=== PATIENT | female | born 1940 | race African-American/Black ===

== ENCOUNTER 2019-03-03 15:22 | Inpatient (IN) | payer MEDICARE ==
[~2019-03-03] VITALS: Ht 170.2 cm; Wt 64.0 kg
[~2019-03-03 15:22] MED LIST: ASPI-518 PO; ATEN-175 PO; Bacitracin; CLEAR EYES OP; COLC0.6T66 PO; DRY EYE RELIEF OP; ECOTRIN PO; FLUT16SP15; FURO-152 PO; LISI40TA4 PO; METO50TA95 PO; OMEP20CA14 PO; [UNRECOGNIZED DRUG - OTHER]; [UNRECOGNIZED DRUG - OTHER] PO
[2019-03-03] MEDS ORDERED: SODIUM CHLORIDE 0.9% 1,000 ML IV ONE (16:06)
[2019-03-03] MEDS ORDERED: ONDANSETRON HCL 4MG/2ML INJ IV ONE (16:15)
[2019-03-03 16:32] LABS: CHLORIDE 104 mEq/L (98-107)
[2019-03-03 16:33] LABS: BASOPHILS % 0.5 % (0.0-2.0); EOSINOPHILS % 0.1 % (0.0-5.0); HEMATOCRIT. 38.5 % (36.0-48.0); LYMPHOCYTES % 35.6 % (20.0-50.0); MEAN CORPUSCULAR HEMOGLOBIN 30.9 pg (28.0-32.0); MEAN CORPUSCULAR VOLUME 91.4 fL (81.0-99.0); MEAN PLATELET VOLUME 9.2 fl (7.4-10.4); MONOCYTES % 12.6 % (2.0-8.0); NEUTROPHILS % 51.2 % (40.0-76.0); PLATELET 148 x1000/uL (130-400); RED BLOOD CELL COUNT 4.21 mill/uL (4.2-5.4); RED CELL DISTRIBUTION WIDTH 13.1 % (11.6-14.6)
[2019-03-03] MEDS ORDERED: ASPIRIN 325MG EC TABLET PO ONE (17:30)
[2019-03-03 21:59] VITALS: BP 137/83
[2019-03-03 22:00] VITALS: BP 137/83
[2019-03-03] MEDS ORDERED: ERGO400C PO (22:37)
[2019-03-03] MEDS ORDERED: CARV3.1242 PO (22:37)
[2019-03-03] MEDS ORDERED: AMLO2.5T45 PO (22:37)
[2019-03-03] MEDS ORDERED: LOSA25TA26 PO (22:37)
[2019-03-03] MEDS ORDERED: IPRATROPIUM/ALBUTEROL 0.5-3(2.5)MG/3ML NEB NEB PRN (22:45)
[2019-03-03] MEDS ORDERED: ONDANSETRON HCL 4MG/2ML INJ IV PRN (22:45)
[2019-03-03] MEDS ORDERED: MORPHINE SULFATE 2 MG/ML CPJ (NOT FOR IM USE) IV PRN (22:45)
[2019-03-03] MEDS ORDERED: HYDROCODONE/APAP 7.5/325MG 1 TAB TABLET PO PRN (22:45)
[2019-03-03 22:46] VITALS: BP 137/83
[2019-03-03] MEDS ORDERED: DEXTROSE 50% WATER 50ML SYRINGE IV PRN (23:00)
[2019-03-03] MEDS: THIAMINE HCL 100MG TABLET PO SCH (23:08)
[2019-03-03] MEDS: SODIUM CHLORIDE 0.9% 1,000 ML IV SCH (23:08)
[2019-03-03] MEDS: POTASSIUM CHLORIDE 20MEQ TABLET SR PO SCH (23:09)
[2019-03-03] MEDS: FERROUS SULFATE 325MG TABLET PO SCH (23:09)
[2019-03-03] MEDS: PROMETHAZINE/DEXTROMETHORPHAN 6.25-15MG/5ML BOTTLE 120ML PO PRN (23:34)
[2019-03-04] VITALS: BP 117/75
[2019-03-04 04:00] VITALS: BP 129/66
[2019-03-04] MEDS: BLOOD SUGAR DIAGNOSTIC STRIP TEST SCH ×4 (05:50→21:01)
[2019-03-04 07:23] LABS: CLARITY URINE CLEAR (CLEAR); COLOR URINE YELLOW (YELLOW); KETONES URINE NEGATIVE (NEGATIVE); LEUKOCYTE ESTERASE URINE TRACE (NEGATIVE); NITRITE URINE NEGATIVE (NEGATIVE); OCCULT BLOOD URINE NEGATIVE (NEGATIVE); PH URINE 5.5 (4.5-8.0); PROTEIN URINE 1+ (NEGATIVE); SPECIFIC GRAVITY URINE 1.009 (1.005-1.030); UROBILINOGEN URINE 0.2 E.U./dL (0.2-1.0)
[2019-03-04 07:41] LABS: *AMPHETAMINES SCREEN URINE NEGATIVE (NEGATIVE); *BARBITURATES SCREEN URINE NEGATIVE (NEGATIVE); *BENZODIAZEPINES SCREEN URINE NEGATIVE (NEGATIVE); *COCAINE SCREEN URINE NEGATIVE (NEGATIVE)
[2019-03-04 07:42] LABS: CANNABINOID URINE SCREEN NEGATIVE (NEGATIVE); OPIATES URINE SCREEN NEGATIVE (NEGATIVE); PHENCYCLIDINE URINE SCREEN NEGATIVE (NEGATIVE)
[2019-03-04 07:48] LABS: METHADONE URINE SCREEN NEGATIVE (NEGATIVE)
[2019-03-04] MEDS: INSULIN LISPRO 100 UNITS/ML SUBCUT SCH ×4 (07:50→21:00)
[2019-03-04 08:00] VITALS: BP 148/98
[2019-03-04] MEDS ORDERED: ENOXAPARIN 30MG/0.3ML SYR SUBCUT SCH (09:00)
[2019-03-04] MEDS: FERROUS SULFATE 325MG TABLET PO SCH ×2 (09:26→17:50)
[2019-03-04] MEDS: THIAMINE HCL 100MG TABLET PO SCH (09:26)
[2019-03-04] MEDS: POTASSIUM CHLORIDE 20MEQ TABLET SR PO SCH (09:26)
[2019-03-04 12:00] VITALS: BP 128/78
[2019-03-04] MEDS: PROMETHAZINE/DEXTROMETHORPHAN 6.25-15MG/5ML BOTTLE 120ML PO PRN ×2 (12:59→21:34)
[2019-03-04 13:25] LABS: BASOPHILS % 0.3 % (0.0-2.0); EOSINOPHILS % 0.1 % (0.0-5.0); HEMATOCRIT. 36.4 % (36.0-48.0); HEMOGLOBIN. 12.5 g/dL (12.0-16.0); LYMPHOCYTES % 41.4 % (20.0-50.0); MEAN CORPUSCULAR HEMOGLOBIN 31.1 pg (28.0-32.0); MEAN CORPUSCULAR VOLUME 90.6 fL (81.0-99.0); MEAN PLATELET VOLUME 9.1 fl (7.4-10.4); MONOCYTES % 8.8 % (2.0-8.0); NEUTROPHILS % 49.4 % (40.0-76.0); PLATELET 122 x1000/uL (130-400); RED BLOOD CELL COUNT 4.01 mill/uL (4.2-5.4); RED CELL DISTRIBUTION WIDTH 12.8 % (11.6-14.6)
[2019-03-04 13:39] LABS: CHLORIDE 113 mEq/L (98-107)
[2019-03-04 16:00] VITALS: BP_SYST 145; BP_SYST 151; BP_SYST 152; BP_DIAS 102; BP_DIAS 96; BP_DIAS 99
[2019-03-04] MEDS ORDERED: ASPIRIN 81MG TABLET PO SCH (17:00)
[2019-03-04] MEDS ORDERED: LOSARTAN POTASSIUM 25 MG TABLET PO SCH (17:15)
[2019-03-04] MEDS ORDERED: AMLO5TAB88 PO (17:21)
[2019-03-04] MEDS ORDERED: LOSA25TA26 PO (17:21)
[2019-03-04] MEDS ORDERED: LEVO50TA8 MT (17:21)
[2019-03-04] MEDS ORDERED: ATOR40TA70 MT (17:21)
[2019-03-04] MEDS ORDERED: [UNRECOGNIZED DRUG - REMARK] (17:35)
[2019-03-04] MEDS ORDERED: D3 5000 IU PO (17:36)
[2019-03-04] MEDS: ATORVASTATIN CALCIUM 40MG TABLET PO SCH (17:50)
[2019-03-04] MEDS: LOSARTAN POTASSIUM 25 MG TABLET PO SCH (17:58)
[2019-03-04] MEDS: OMEPRAZOLE 20MG CAPSULE EXTENDED RELEASE PO SCH (17:58)
[2019-03-04] MEDS: LEVOTHYROXINE SODIUM 50MCG TABLET PO SCH (17:59)
[2019-03-04] MEDS ORDERED: CARVEDILOL 3.125 MG TABLET PO SCH (18:00)
[2019-03-04] MEDS: SODIUM CHLORIDE 0.9% 1,000 ML IV SCH (18:13)
[2019-03-04 20:00] VITALS: BP 142/76
[2019-03-04] MEDS: AMLODIPINE 5MG TABLET PO SCH (21:30)
[2019-03-04] MEDS: ACETAMINOPHEN 325MG TABLET PO PRN (21:31)
[2019-03-05] VITALS: BP 150/84
[2019-03-05] MEDS: PROMETHAZINE/DEXTROMETHORPHAN 6.25-15MG/5ML BOTTLE 120ML PO PRN (03:46)
[2019-03-05] MEDS: ACETAMINOPHEN 325MG TABLET PO PRN (03:46)
[2019-03-05 04:00] VITALS: BP 142/82
[2019-03-05] MEDS: BLOOD SUGAR DIAGNOSTIC STRIP TEST SCH ×4 (06:31→21:03)
[2019-03-05] MEDS: OMEPRAZOLE 20MG CAPSULE EXTENDED RELEASE PO SCH (06:31)
[2019-03-05] MEDS: LEVOTHYROXINE SODIUM 50MCG TABLET PO SCH (06:31)
[2019-03-05 07:02] LABS: BASOPHILS % 0.3 % (0.0-2.0); EOSINOPHILS % 0.1 % (0.0-5.0); HEMATOCRIT. 35.2 % (36.0-48.0); HEMOGLOBIN. 12.2 g/dL (12.0-16.0); LYMPHOCYTES % 48.7 % (20.0-50.0); MEAN CORPUSCULAR HEMOGLOBIN 31.3 pg (28.0-32.0); MEAN CORPUSCULAR VOLUME 90.2 fL (81.0-99.0); MONOCYTES % 9.7 % (2.0-8.0); NEUTROPHILS % 41.2 % (40.0-76.0); PLATELET 107 x1000/uL (130-400)
[2019-03-05] MEDS: INSULIN LISPRO 100 UNITS/ML SUBCUT SCH ×4 (07:50→21:46)
[2019-03-05 07:53] LABS: CHLORIDE 114 mEq/L (98-107)
[2019-03-05 08:00] VITALS: BP 118/74
[2019-03-05 08:04] LABS: PHOSPHORUS 2.4 mg/dL (2.5-4.9)
[2019-03-05] MEDS: POTASSIUM CHLORIDE 20MEQ TABLET SR PO SCH (10:01)
[2019-03-05] MEDS: CARVEDILOL 3.125 MG TABLET PO SCH ×2 (10:02→21:03)
[2019-03-05] MEDS: ASPIRIN 81MG TABLET PO SCH (10:02)
[2019-03-05] MEDS: LOSARTAN POTASSIUM 25 MG TABLET PO SCH ×2 (10:02→17:21)
[2019-03-05] MEDS: AMLODIPINE 5MG TABLET PO SCH ×2 (10:19→21:03)
[2019-03-05] MEDS: CHOLECALCIFEROL (D3) 1000 UNIT TABLET PO SCH (10:19)
[2019-03-05] MEDS: ATORVASTATIN CALCIUM 40MG TABLET PO SCH (10:19)
[2019-03-05] MEDS: THIAMINE HCL 100MG TABLET PO SCH (10:20)
[2019-03-05] MEDS: ENOXAPARIN 40MG/0.4ML SYR SUBCUT SCH (10:20)
[2019-03-05 12:00] VITALS: BP 146/78
[2019-03-05] MEDS ORDERED: REGADENOSON 0.4 MG/5 ML IV NR (13:15)
[2019-03-05] MEDS: MAGNESIUM OXIDE 400MG TABLET PO SCH (13:54)
[2019-03-05] MEDS ORDERED: IPRATROPIUM/ALBUTEROL 0.5-3(2.5)MG/3ML NEB HHN PRN (14:45)
[2019-03-05] MEDS ORDERED: BENZONATATE 100MG CAPSULE PO PRN (14:45)
[2019-03-05 16:00] VITALS: BP 123/83
[2019-03-05] MEDS: AZITHROMYCIN 500 MG TABLET PO SCH (17:22)
[2019-03-05] MEDS: SODIUM CHLORIDE 0.9% 1,000 ML IV SCH (17:22)
[2019-03-05] MEDS: METHYLPREDNISOLONE SOD SUCC 40 MG/ML VIAL IV SCH ×2 (17:38→22:04)
[2019-03-05] MEDS: CEFTRIAXONE 1 G PREMIX 50 ML IV SCH (17:39)
[2019-03-05] MEDS ORDERED: AMLODIPINE 5MG TABLET PO SCH (18:00)
[2019-03-05 20:00] VITALS: BP 128/80
[2019-03-05] MEDS: GUAIFENESIN 600MG ER TABLET PO SCH (21:02)
[2019-03-06] VITALS (9 sets, daily range): BP systolic 116–160; BP diastolic 60–113
[2019-03-06 05:51] LABS: HEMATOCRIT. 38.9 % (36.0-48.0); HEMOGLOBIN. 13.6 g/dL (12.0-16.0); MEAN CORPUSCULAR HEMOGLOBIN 31.2 pg (28.0-32.0); MEAN CORPUSCULAR VOLUME 89.5 fL (81.0-99.0); MEAN PLATELET VOLUME 9.1 fl (7.4-10.4); PLATELET 116 x1000/uL (130-400); RED BLOOD CELL COUNT 4.35 mill/uL (4.2-5.4); RED CELL DISTRIBUTION WIDTH 12.8 % (11.6-14.6)
[2019-03-06] MEDS: METHYLPREDNISOLONE SOD SUCC 40 MG/ML VIAL IV SCH ×3 (06:00→21:00)
[2019-03-06] MEDS: BLOOD SUGAR DIAGNOSTIC STRIP TEST SCH ×4 (06:13→20:56)
[2019-03-06] MEDS: OMEPRAZOLE 20MG CAPSULE EXTENDED RELEASE PO SCH ×2 (06:24→13:04)
[2019-03-06] MEDS: LEVOTHYROXINE SODIUM 50MCG TABLET PO SCH ×2 (06:24→13:04)
[2019-03-06 06:34] LABS: CHLORIDE 111 mEq/L (98-107)
[2019-03-06 06:42] LABS: C REACTIVE PROTEIN QUANT 0.8 mg/L (0.0-3.0)
[2019-03-06] MEDS: INSULIN LISPRO 100 UNITS/ML SUBCUT SCH ×3 (07:50→21:03)
[2019-03-06] MEDS: CHOLECALCIFEROL (D3) 1000 UNIT TABLET PO SCH (09:00)
[2019-03-06] MEDS: ASPIRIN 81MG TABLET PO SCH (09:00)
[2019-03-06] MEDS: THIAMINE HCL 100MG TABLET PO SCH (09:00)
[2019-03-06] MEDS: ATORVASTATIN CALCIUM 40MG TABLET PO SCH (09:00)
[2019-03-06] MEDS: AMLODIPINE 5MG TABLET PO SCH ×2 (09:00→12:55)
[2019-03-06] MEDS: FERROUS SULFATE 325MG TABLET PO SCH (09:00)
[2019-03-06] MEDS: ENOXAPARIN 40MG/0.4ML SYR SUBCUT SCH (09:00)
[2019-03-06] MEDS: GUAIFENESIN 600MG ER TABLET PO SCH ×2 (09:00→20:57)
[2019-03-06] MEDS: POTASSIUM CHLORIDE 20MEQ TABLET SR PO SCH (09:00)
[2019-03-06] MEDS: MAGNESIUM OXIDE 400MG TABLET PO SCH (09:00)
[2019-03-06] MEDS: LOSARTAN POTASSIUM 25 MG TABLET PO SCH ×2 (09:00→12:56)
[2019-03-06] MEDS: CARVEDILOL 3.125 MG TABLET PO SCH ×2 (09:00→12:55)
[2019-03-06] MEDS ORDERED: REGADENOSON 0.4 MG/5 ML IV ONE (09:31)
[2019-03-06 09:51] LABS: PLATELET ESTIMATE SLIGHTLY DECREASED
[2019-03-06] MEDS: SODIUM CHLORIDE 0.9% 1,000 ML IV SCH (10:36)
[2019-03-06 16:43] LABS: HEPATITIS B SURFACE ANTIGEN NEGATIVE
[2019-03-06 17:13] LABS: HEPATITIS A AB IGM NEGATIVE (NEGATIVE)
[2019-03-06] MEDS: AZITHROMYCIN 500 MG TABLET PO SCH (17:31)
[2019-03-06] MEDS: CEFTRIAXONE 1 G PREMIX 50 ML IV SCH (17:31)
[2019-03-06] MEDS ORDERED: LOSARTAN POTASSIUM 25 MG TABLET PO NR (21:00)
[2019-03-06] MEDS ORDERED: CARVEDILOL 3.125 MG TABLET PO NR (21:00)
[2019-03-07] VITALS: BP 133/89
[2019-03-07 04:00] VITALS: BP 149/93
[2019-03-07] MEDS: METHYLPREDNISOLONE SOD SUCC 40 MG/ML VIAL IV SCH ×2 (06:44→13:17)
[2019-03-07] MEDS: BLOOD SUGAR DIAGNOSTIC STRIP TEST SCH ×2 (07:11→11:48)
[2019-03-07] MEDS ORDERED: FAMOTIDINE 20MG TABLET PO SCH (07:20)
[2019-03-07 07:36] LABS: BASOPHILS % 0.4 % (0.0-2.0); HEMATOCRIT. 37.9 % (36.0-48.0); HEMOGLOBIN. 13.1 g/dL (12.0-16.0); LYMPHOCYTES % 13.8 % (20.0-50.0); MEAN CORPUSCULAR HEMOGLOBIN 31.4 pg (28.0-32.0); MEAN CORPUSCULAR VOLUME 90.7 fL (81.0-99.0); MEAN PLATELET VOLUME 9.4 fl (7.4-10.4); MONOCYTES % 5.2 % (2.0-8.0); NEUTROPHILS % 80.6 % (40.0-76.0); PLATELET 124 x1000/uL (130-400); RED BLOOD CELL COUNT 4.18 mill/uL (4.2-5.4); RED CELL DISTRIBUTION WIDTH 13.1 % (11.6-14.6)
[2019-03-07 08:00] VITALS: BP 143/75
[2019-03-07 08:06] LABS: CHLORIDE 112 mEq/L (98-107)
[2019-03-07] MEDS: POTASSIUM CHLORIDE 20MEQ TABLET SR PO SCH (09:10)
[2019-03-07] MEDS: CHOLECALCIFEROL (D3) 1000 UNIT TABLET PO SCH (09:10)
[2019-03-07] MEDS: FERROUS SULFATE 325MG TABLET PO SCH (09:10)
[2019-03-07] MEDS: THIAMINE HCL 100MG TABLET PO SCH (09:10)
[2019-03-07] MEDS: ASPIRIN 81MG TABLET PO SCH (09:10)
[2019-03-07] MEDS: MAGNESIUM OXIDE 400MG TABLET PO SCH (09:11)
[2019-03-07] MEDS: AMLODIPINE 5MG TABLET PO SCH (09:11)
[2019-03-07] MEDS: LOSARTAN POTASSIUM 25 MG TABLET PO SCH (09:11)
[2019-03-07] MEDS: GUAIFENESIN 600MG ER TABLET PO SCH (09:11)
[2019-03-07] MEDS: CARVEDILOL 3.125 MG TABLET PO SCH (09:12)
[2019-03-07] MEDS: ENOXAPARIN 40MG/0.4ML SYR SUBCUT SCH (09:12)
[2019-03-07] MEDS: ATORVASTATIN CALCIUM 40MG TABLET PO SCH (09:21)
[2019-03-07] MEDS: SODIUM CHLORIDE 0.9% 1,000 ML IV SCH (09:27)
[2019-03-07] MEDS: INSULIN LISPRO 100 UNITS/ML SUBCUT SCH ×2 (09:35→11:48)
[2019-03-07 11:39] VITALS: BP 135/95
[2019-03-07 14:49] VITALS: BP 135/95
[2019-03-08 09:06] LABS: IMMUNOGLOBULIN A 201 mg/dL (64-422); IMMUNOGLOBULIN G 1398 mg/dL (700-1600); IMMUNOGLOBULIN M 88 mg/dL (26-217)
[2019-03-08 09:06] LABS: IMMUNOGLOBULIN G 1471 mg/dL (700-1600); IMMUNOGLOBULIN M 85 mg/dL (26-217)
[2019-03-08 10:07] LABS: EBV VIRAL CAPSID AB IGM <36.0 U/mL (0.0-35.9)
[2019-03-08 14:08] LABS: HIV SCREEN 4G Non Reactive (Non Reactive)
== END 2019-03-07 16:25 | disposition home or self-care (01) | DRG 871 ==
LOC: ER 15:22 → 6WST 18:46 → EDBEDREQ 18:49 → ENRESERV 19:48
PROVIDERS: ADMIT Internal Medicine Nephrology; ATTEND Internal Medicine Nephrology
DX: A41.9 Sepsis, unspecified organism (principal); N17.0 Acute kidney failure with tubular necrosis; J96.00 Acute respiratory failure, unspecified whether with hypoxia or hypercapnia; E44.1 Mild protein-calorie malnutrition; G90.8 Other disorders of autonomic nervous system; E03.9 Hypothyroidism, unspecified; E87.6 Hypokalemia; I25.10 Atherosclerotic heart disease of native coronary artery without angina pectoris; E86.0 Dehydration; E78.5 Hyperlipidemia, unspecified; D69.6 Thrombocytopenia, unspecified; E11.22 Type 2 diabetes mellitus with diabetic chronic kidney disease; I12.9 Hypertensive chronic kidney disease with stage 1 through stage 4 chronic kidney disease, or unspecified chronic kidney disease; J20.9 Acute bronchitis, unspecified; N18.9 Chronic kidney disease, unspecified; R74.0 Nonspecific elevation of levels of transaminase and lactic acid dehydrogenase [LDH]; Z95.5 Presence of coronary angioplasty implant and graft; Z68.22 Body mass index [BMI] 22.0-22.9, adult; I25.2 Old myocardial infarction; Z82.49 Family history of ischemic heart disease and other diseases of the circulatory system
CPT/HCPCS: 36415; 71045; 78452; 80048; 80053; 80061; 80305; 81003; 82784; 82962; 83036; 83735; 83880; 84100; 84145; 84443; 84484; 85025; 85651; 86140; 86334; 86664; 86665; 86705; 86709; 86803; 87340; 87389; 93005; 93017; 93306; 93880; 93970; 94640; 97162; 99285; A9500; J0696; J1650; J1815; J2405; J2785; J2920; J7030; J7620